=== PATIENT | male | born 1955 | race Asian ===

== ENCOUNTER 2019-04-17 04:03 | Emergency (ER) | payer OTHER ==
[2019-04-17 04:54] LABS: BASOPHILS 1.2 % (0.0-2.0); HEMATOCRIT 44.7 % (42.0-52.0); HEMOGLOBIN 14.7 gm/dL (14.0-18.0); LYMPHOCYTES 25.8 % (24.0-44.0); MCH 28.7 pg (26.0-34.0); MCV 86.9 fL (80.0-100.0); MONOCYTES 6.3 % (1.0-8.0); PLATELET COUNT 181 thou/uL (150-400); POLYS 62.7 % (36.0-66.0); RBC 5.14 mil/uL (4.50-6.00); RDW 12.8 % (10.5-14.5); WBC 7.9 thou/uL (4.0-11.0)
[2019-04-17 05:02] LABS: ANION GAP 7 mmol/L (7-16); BUN 21 mg/dL (7-18); CALCIUM 9.7 mg/dL (8.5-10.1); CHLORIDE 103 mmol/L (98-107); CO2 29 mmol/L (21-32); CREATININE 0.9 mg/dL (0.7-1.3); GLUCOSE 291 mg/dL (74-106); POTASSIUM 4.5 mmol/L (3.5-5.1); SODIUM 139 mmol/L (136-145)
[2019-04-17 05:10] LABS: TROPONIN-I <0.06 ng/mL (<0.06)
[2019-04-17 06:01] VITALS: BP 122/65
--- NOTE | 2019-04-17 09:02 | EKG ---
[facility] [place] [address] ELECTROCARDIOGRAM REPORT Name: ENRRIQUE VALLES [id number] Admission: 04/17/19 Attend Phys: Discharge: 04/17/19 Date of : 55 Report #: [id number] THIS REPORT FOR: //name// [facility] ED Test Date: 2019-04-17 Test Time: 04:07:57 Pat Name: ENRRIQUE VALLES Department: Room: Gender: M Senior Housekeeper: NERI : 1955 Requested By: Agustin Pereira Order Number: [id number] MD: Rashard Lagunas Measurements Intervals [place] Rate: 65 P: 68 CA: 193 QRS: 61 QRSD: 80 T: 45 QT: 424 QTc: 441 Interpretive Statements Sinus rhythm Abnormal R-wave progression, early transition Minimal diffuse ST elevation, consider early repolarization No previous ECG available for comparison Electronically Signed On 04-17-2019 9:02:33 CDT by Rashard Lagunas [email or web address] <ELECTRONICALLY SIGNED> By: Rashard Lagunas MD, [facility] 04/17/19 [id number] Rashard Lagunas MD, FACC /EPI
== END 2019-04-17 06:41 | disposition home or self-care (01) ==
LOC: ER 04:03
PROVIDERS: Emergency Medicine
DX: R07.9 Chest pain, unspecified (principal); Z87.891 Personal history of nicotine dependence